=== PATIENT | male | born 1955 | race Caucasian/White ===

== ENCOUNTER → 2020-10-02 07:09 | Outpatient (CLI) | payer BC, SELFPAY ==
[2020-10-02 18:17] LABS: SARS-CoV-2 RNA PCR Positive
== END ==
PROVIDERS: PCP Family Medicine; Visit Provider Family Medicine
DX: B34.9 Viral infection, unspecified (principal); Z20.822 Contact with and (suspected) exposure to COVID-19
CPT/HCPCS: C9803; U0003; U0005

== ENCOUNTER 2022-01-10 01:51 | Day surgery (SDC) | payer BC, SELFPAY ==
[2022-01-06 11:16] VITALS: BMI 28.8
[2022-01-10 12:21] VITALS: BP 135/67; PULSE 60; RESP 18; TEMP 36.6; O2SAT 100; BMI 29.0
[2022-01-10] MEDS: LACTATED RINGERS 1,000 ML 150 ML IV CONT (12:50)
--- NOTE | 2022-01-10 13:05 | PM.HPGS ---
History of Present Illness History of Present Illness Consent: Risks, benefits, and alternatives have been discussed and questions answered. Patient agrees to proceed with procedure. Chief complaint: Hx of colon polyps Narrative: Last Hoyos is a 66 year old male Presents for screening colonoscopy. Patient reports that his current weight appetite and bowel movements are normal. Patient denies abdominal pain. He has had no bleeding. Family history noncontributory. Patient does have a history of a benign tubulovillous adenoma removed from the colon 2018. Patient presents today for screening colonoscopy. Review of Systems Review of Systems: Review of systems noncontributory. [facility] Social History Social History Smoking status: Never smoker Alcohol intake: current Drinks per week: 2 Substance use: never Substance use type: does not use Living arrangements: with family Spiritual care concerns: No Meds Home Medications and Allergies Home Medications Medication Instructions Recorded Confirmed Type sodium,potassium,mag sulfates 17.5 See Rx Instructions PO .COMPLEX 12/17/21 01/06/22 Rx gram-3.13 gram-1.6 gram oral soln #354 mL (Suprep Bowel Prep Kit) cefuroxime axetil 500 mg tablet 500 mg PO BID 01/06/22 01/06/22 History finasteride 5 mg tablet 5 mg PO DAILY 01/06/22 01/06/22 History tadalafil 20 mg tablet 20 mg PO PRN PRN Erectile 01/06/22 01/06/22 History Dysfunction Allergies Allergy/AdvReac Type Severity Reaction Status Date / Time codeine AdvReac Unknown NAUSEA Verified 01/06/22 11:40 Vital Signs Vital Signs - 24 hr 01/10/22 12:21 Temperature 97.9 F Pulse Rate 60 Respiratory Rate 18 Blood Pressure 135/67 Pulse Oximetry 100 Oxygen Delivery Room Air Exam Narrative: Physical exam reveals patient to be alert. Vital signs stable. HEENT exam is unremarkable. Patient is anicteric. Lungs are clear to auscultation and percussion. Heart is without murmur or extra sounds. Abdomen bowel sounds present soft nontender with no organomegaly. Digital external rectal exam is normal. Assessment and Plan Assessment and plan (1) History of colon polyps: Code(s): Z86.010 - Personal history of colonic polyps Status: Acute Assessment and Plan: Patient has a history of a tubulovillous adenoma removed from the colon 2018. Plan for surveillance colonoscopy at this time. Further recommendations may be given after endoscopy.
--- NOTE | 2022-01-10 13:25 | P.PNAN_ITS ---
Anes - Eval Pre Procedure Procedure: Operation Date: 01/10/22 13:30 Proposed Procedures p Screening Colonoscopy - Javon Sutton MD Date/Time: 01/10/22 13:25 Surgeon: Lesley Preop Diagnosis: hx of colon polyps Pre Op Diagnosis: Hx of colon polyps Patient Data Age: 66 Gender: M Height: 1.78 m Weight: 91.8 kg Last Vital Signs Temp 36.6 C 01/10/22 12:21 Pulse 60 01/10/22 12:21 Resp 18 01/10/22 12:21 BP 135/67 01/10/22 12:21 Pulse Ox 100 01/10/22 12:21 O2 Del Method Room Air 01/10/22 12:21 Allergies Allergy/AdvReac Type Severity Reaction Status Date / Time codeine AdvReac Unknown NAUSEA Verified 01/06/22 11:40 Home Medications Medication Instructions Recorded Confirmed Type sodium,potassium,mag sulfates 17.5 See Rx Instructions PO .COMPLEX 12/17/21 01/06/22 Rx gram-3.13 gram-1.6 gram oral soln #354 mL (Suprep Bowel Prep Kit) cefuroxime axetil 500 mg tablet 500 mg PO BID 01/06/22 01/06/22 History finasteride 5 mg tablet 5 mg PO DAILY 01/06/22 01/06/22 History tadalafil 20 mg tablet 20 mg PO PRN PRN Erectile 01/06/22 01/06/22 History Dysfunction Patient hx anesthesia problems: none Family hx anesthesia problems: none Results Review: All pre-operative results and documents have been reviewed as part of the pre- operative evaluation. [facility] Social History Social History Smoking status: Never smoker Alcohol intake: current Drinks per week: 2 Substance use: never Substance use type: does not use Living arrangements: with family Spiritual care concerns: No Exam Day of Procedure 01/10/22 13:25 Patient weight: normal Heart: regular rate and rhythm Lungs: clear to auscultation and normal air movement Airway: Mallampati scale class 1 Neurological: alert and oriented
[2022-01-10 13:32] VITALS: BP 90/40; PULSE 52; RESP 20; O2SAT 100
--- NOTE | 2022-01-10 13:36 | SUR.OPER ---
debris in specimen cup, unsure polyp retrieved, dr mace aware, notified hannah in pathology.
[2022-01-10 13:42] VITALS: BP 95/51; PULSE 54; RESP 20; O2SAT 100
[2022-01-10 13:52] VITALS: BP 106/66; PULSE 60; RESP 20; O2SAT 100
== END 2022-01-10 14:08 | disposition home or self-care (01) ==
PROVIDERS: PCP Family Medicine; Visit Provider Internal Medicine Gastroenterology
PROC: 0DJD8ZZ Inspection of Lower Intestinal Tract, Via Natural or Artificial Opening Endoscopic (ICD-10-PCS; CPT 45378; principal; 2022-01-10 13:30)
DX: Z12.11 Encounter for screening for malignant neoplasm of colon (principal); D12.5 Benign neoplasm of sigmoid colon
CPT/HCPCS: 45385; 88305; J2704; J7120

== ENCOUNTER 2023-10-27 15:38 | Emergency (ER) | payer MEDICARE, SELFPAY ==
--- NOTE | ~2023-10-27 | CT_ITS ---
EXAMINATION: CT abdomen pelvis wo con DATE: 10/27/2023 17:41 INDICATION: Right flank pain. TECHNIQUE: Computed tomography (CT) of the abdomen and pelvis was performed without intravenous contr ast. Automated exposure control and iterative reconstruction technique were employed. The dose-length product was 738.85 mGy-cm. COMPARISON: None. FINDINGS: The visualized portions of lung bases demonstrate a calcified nodule in right lower lobe, c onsistent with old granulomatous disease. No pleural effusion. The heart size is normal. No pericardi al effusion. There is a small sliding hiatal hernia. There is a 13 mm cyst in the liver. Calcificatio ns in the spleen are consistent with old granulomatous disease. There are changes of cholecystectomy. The pancreas and adrenal glands are normal. There are cysts in the kidneys measuring up to 3.3 cm on the right. There is no urolithiasis. The prostate is mildly enlarged. The bladder is distended. Ther e is diffuse bladder wall thickening, likely secondary to chronic outlet obstruction. There is a righ t inguinal hernia containing fat. There is diverticulosis of the colon without evidence of diverticul itis. The appendix is normal. There are no pathologically enlarged lymph nodes. There is no free intr aperitoneal fluid. There is severe lower lumbar spondylosis. There is mild chronic anterior wedging o f T11-L1 vertebral bodies. IMPRESSION: 1. No urolithiasis. 2. Small sliding hiatal hernia. 3. Right inguinal hernia containing fat. 4. Diffuse bladder wall thickening, likely secondary to chronic outlet obstruction from the mildly en larged prostate. Reviewed, dictated and finalized at location A. IMPRESSION: 1. No urolithiasis. 2. Small sliding hiatal hernia. 3. Right inguinal hernia containing fat. 4. Diffuse bladder wall thickening, likely secondary to chronic outlet obstruct ion from the mildly enlarged prostate.
[2023-10-27 16:45] VITALS: BP 105/74; PULSE 57; RESP 18; TEMP 36.7; O2SAT 100
--- NOTE | 2023-10-27 16:49 | ED.ABDPAIN ---
HPI - Abdominal Pain General Chief Complaint: Urogenital-Male <THERESA Eugene Last Filed: 10/29/23 17:43> Stated Complaint: right flank pain <THERESA Eugene Last Filed: 10/29/23 17:43> Time Seen by Provider: 10/27/23 16:49 <THERESA Eugene Last Filed: 10/29/23 17:43> Focused HPI: This is a 67 year old male that presents to the ER for right flank pain. Ongoing over the last couple of days. Was concerned for possible kidney stone. Reports dysuria. Denies hematuria. GENERAL: Well-appearing, well-nourished, and in no acute distress. HEAD: Normocephalic, atraumatic. CHEST: Clear to auscultation. ?No respiratory distress. HEART: Regular rate and rhythm.? NEURO: ?Alert and oriented x3. Patient screened in triage and initial orders placed.? ?Additional care and disposition to be based upon?diagnostic testing and treatment. <THERESA Eugene Last Filed: 10/29/23 17:43> Source: patient <THERESA Murrieta Last Filed: 10/27/23 19:19> Mode of arrival: ambulatory <THERESA Murrieta Last Filed: 10/27/23 19:19> Limitations: no limitations <THERESA Murrieta Last Filed: 10/27/23 19:19> History of Present Illness HPI narrative: Agree with above HPI. states pain became more severe around lunchtime today. Has not taken anything for pain. Denies nausea, vomiting, fevers. Scheduled to see Urology tomorrow. No previous history of kidney stones. <THERESA Murrieta Last Filed: 10/27/23 19:19> Related Data Home Medications: Home Medications Medication Instructions Recorded Confirmed finasteride 5 mg tablet 5 mg PO DAILY 01/06/22 01/06/22 tadalafil 20 mg tablet 20 mg PO PRN PRN Erectile 01/06/22 01/06/22 Dysfunction <THERESA Eugene Last Filed: 10/29/23 17:43> Allergies/Adverse Reactions: Allergies Allergy/AdvReac Type Severity Reaction Status Date / Time codeine AdvReac Unknown NAUSEA Verified 10/27/23 16:51 <Jessica Decker PA-C - Last Filed: 10/29/23 17:43> Review of Systems Review of Systems: All systems reviewed & are unremarkable except as noted in HPI. <Emma Rashid PA-C - Last Filed: 10/27/23 19:19> All systems reviewed & are unremarkable except as noted in HPI and below <Emma Rashid PA-C - Last Filed: 10/27/23 19:19> PMFSH Past Medical History Medical History: Medical History Essential (primary) hypertension Pure hypercholesterolemia, unspecified <Jessica Decker PA-C - Last Filed: 10/29/23 17:43> Social History Social History: Social History Smoking status: Never smoker Second hand tobacco smoke exposure: No Alcohol intake: current Drinks per week: 2 Substance use: never Substance use type: does not use Lack of Transportation: No Lack of Food: Never True Current Housing: I Have Housing Concerned About Future Housing: No Difficulty Paying Gas/Electric Bills: No Difficulty Paying for Meds: No Currently Unemployed: No Education: High School Diploma/GED Difficulty w/ Childcare or Family Care: No Living arrangements: with family Occupation/Education: retired Gender identity (if verbalized by the patient): Male Sexual Orientation (if Verbalized by the Patient): Straight or Heterosexual Spiritual care concerns: No <Jessica Decker PA-C - Last Filed: 10/29/23 17:43> Exam Narrative: GENERAL: Well appearing, well-nourished, non-toxic, in no acute distress. HEAD: Normocephalic, atraumatic. RESPIRATORY: Airway patent, respirations nonlabored. Clear to auscultation bilaterally, no rales, rhonchi, wheezing. CARDIOVASCULAR: Regular rate and rhythm without murmurs, rubs, or gallops. ABDOMINAL: Soft, no significant tenderness to palpation, nondistended. Normoactive BS. +CVA tendern
[2023-10-27 17:01] VITALS: BP 110/68; PULSE 68; RESP 16; TEMP 36.6; O2SAT 100
--- NOTE | 2023-10-27 17:33 | PC.NURSE ---
pt refused SLN
[2023-10-27 17:55] LABS: Basophils Percent Auto 0.5 % (0.2-1.2); Eosinophils Absolute Auto 0.1 K/mm3 (0-0.3); Eosinophils Percent Auto 1.2 % (0-4.4); Hematocrit 42.2 % (42.0-52.0); Hemoglobin 14.8 g/dL (14.0-18.0); Immature Granulocyte Absolute 0.03 K/mm3 (0.00-0.031); Immature Granulocyte Percent A 0.4 % (0-0.5); Lymphocytes Absolute Auto 1.67 K/mm3 (0.9-3.2); Lymphocytes Percent Auto 22.3 % (18.3-44.2); Mean Corpuscular HGB Conc 35.1 g/dl (32-36); Mean Corpuscular Hemoglobin 34.9 pg (26-34); Mean Corpuscular Volume 99.5 fl (80-100); Mean Platelet Volume 9.7 fl (7.4-10.4); Monocytes Absolute Auto 0.4 K/mm3 (0.1-0.6); Monocytes Percent Auto 5.9 % (2.6-8.5); Neutrophils Absolute Auto 5.2 K/mm3 (1.3-6.7); Neutrophils Percent Auto 69.7 % (45.5-73.1); Platelet Count Result 281 k/mm3 (150-375); Red Blood Count 4.24 M/mm3 (4.6-6.20); Red Cell Distribution Width 12.7 % (11.5-14.5); White Blood Count 7.5 K/mm3 (4.5-10.0)
[2023-10-27 18:06] LABS: Alanine Aminotransferase 28 U/L (6-50); Albumin Level 4.4 g/dL (3.5-5.1); Alkaline Phosphatase 42 U/L (38-126); Anion Gap 11 mmol/L (4-12); Aspartate Amino Transferase 25 U/L (17-59); Bilirubin,Total 0.8 mg/dL (0.2-1.3); Blood Urea Nitrogen 10 mg/dL (9-20); Calcium 8.9 mg/dL (8.4-10.2); Carbon Dioxide 24 mmol/L (22-30); Chloride 101 mmol/L (98-107); Estimated CRCL calculation 83 ml/min; Estimated Glomerular Filt Rate > 60; Glucose 100 mg/dL (65-110); Lipase 127 U/L (23-300); Potassium 4.2 mmol/L (3.4-5.0); Sodium 136 mmol/L (137-145)
[2023-10-27 18:13] LABS: Add Urine Microscopic? NO; Appearance Urine Clear (Clear); Bilirubin Urine Negative (Negative); Blood Urine Negative (Negative); Color Urine Yellow (Yellow); Glucose Urine UA Negative (Negative); Ketones Urine Negative (Negative); Leukocyte Esterase Ur Negative LEU/UL (Negative); Nitrate Urine Negative (Negative); Protein Urine Negative (Negative); Specific Grav Ur 1.009 (1.001-1.035); Urobilinogen Urine 0.2 mg/dL (<2.0); pH Urine 5.5 (5.0-9.0)
== END 2023-10-27 19:23 | disposition home or self-care (01) ==
PROVIDERS: Physician Assistant; Emergency Provider Physician Assistant; PCP Family Medicine
DX: M54.50 Low back pain, unspecified (principal); N40.1 Benign prostatic hyperplasia with lower urinary tract symptoms; R33.8 Other retention of urine; I10 Essential (primary) hypertension; E78.00 Pure hypercholesterolemia, unspecified; Z79.899 Other long term (current) drug therapy; K40.90 Unilateral inguinal hernia, without obstruction or gangrene, not specified as recurrent; K44.9 Diaphragmatic hernia without obstruction or gangrene; R93.41 Abnormal radiologic findings on diagnostic imaging of renal pelvis, ureter, or bladder
CPT/HCPCS: 36415; 74176; 80053; 81003; 83690; 85025; 99284